=== PATIENT | male | born 1985 | race Caucasian/White ===

== ENCOUNTER 2016-11-22 07:41 | Day surgery (SDC) | payer SELFPAY ==
[~2016-11-22] VITALS: Ht 177.8 cm; Wt 94.0 kg
[~2016-11-22 07:41] MED LIST: HYDR-3307 PO; MELO-184 PO; METH500T97 PO; ONDA4TAB7 PO; TIZA6CAP PO; TRAM50TA2 PO
[2016-11-22 08:24] VITALS: BP 158/92
[2016-11-22] MEDS ORDERED: IBUP800T PO (08:28)
[2016-11-22] MEDS ORDERED: SODIUM CHLORIDE 0.9% 1,000 ML IV SCH (08:30)
== END 2016-11-22 09:20 | disposition home or self-care (01) ==
LOC: OUT 07:41 → EDSTATUS 14:00
PROVIDERS: ATTEND Neurological Surgery
DX: Z02.9 Encounter for administrative examinations, unspecified (principal)

== ENCOUNTER 2016-12-02 11:39 | Day surgery (SDC) | payer SELFPAY ==
[~2016-12-02] VITALS: Ht 177.8 cm; Wt 95.0 kg
[~2016-12-02 11:39] MED LIST changes: +IBUP-1223 PO; -MELO-184 PO; +MELO15TA24 PO
[2016-12-02] MEDS ORDERED: SODIUM CHLORIDE 0.9% 1,000 ML IV SCH (12:12)
[2016-12-02 12:33] VITALS: BP 133/85
[2016-12-02] MEDS ORDERED: OMNIPAQUE 300 MG/ML, 10ML VIAL ONE (14:51)
[2016-12-02] MEDS ORDERED: OXYcodone/APAP 5/325MG TABLET ONE (15:01)
[2016-12-02] MEDS ORDERED: OXYcodone/APAP 5/325MG TABLET PO ONE (15:30)
== END 2016-12-02 18:05 | disposition home or self-care (01) ==
LOC: OUT 11:39
PROVIDERS: ATTEND Neurological Surgery
DX: M54.5 Low back pain (principal); J45.909 Unspecified asthma, uncomplicated; G43.909 Migraine, unspecified, not intractable, without status migrainosus; F17.210 Nicotine dependence, cigarettes, uncomplicated
CPT/HCPCS: 62284; 72110; 72132; J7030; Q9967

== ENCOUNTER 2018-07-05 13:35 | Emergency (ER) | payer SELFPAY ==
[~2018-07-05] VITALS: Ht 177.8 cm; Wt 94.0 kg
[2018-07-05] MEDS ORDERED: SODIUM CHLORIDE FLUSH 10ML SYR IVF ONE (14:00)
[2018-07-05 14:33] LABS: BASOPHILS # (AUTO) 0.06 x10^3/uL (0-0.1); BASOPHILS % (AUTO) 1 % (0-1); EOSINOPHILS # (AUTO) 0.04 x10^3/uL (0-0.4); EOSINOPHILS % (AUTO) 0 % (1-7); LYMPHOCYTES # (AUTO) 2.47 x10^3/uL (1-3.4); LYMPHOCYTES % (AUTO) 22 % (22-44); MD NO; MEAN CORPUSCULAR HEMOGLOBIN 30.2 pg (27.5-34.5); MEAN CORPUSCULAR HGB CONC 33.4 g/dL (33.2-36.2); MEAN CORPUSCULAR VOLUME 90.5 fL (81-97); MEAN PLATELET VOLUME 8.1 fL (7.4-10.4); MONOCYTES # (AUTO) 0.61 x10^3/uL (0.2-0.8); MONOCYTES % (AUTO) 5 % (2-9); NEUTROPHILS # (AUTO) 8.27 x10^3/uL (1.8-6.8); NEUTROPHILS % (AUTO) 72 % (42-75); PLATELET COUNT 188 x10^3/uL (130-400); RED BLOOD COUNT 5.05 x10^6/uL (4.38-5.82); RED CELL DISTRIBUTION WIDTH 14.9 % (9.4-14.8)
[2018-07-05 14:38] LABS: ALANINE AMINOTRANSFERASE 28 U/L (12-78); ALBUMIN 4.3 g/dL (3.4-5.0); ANION GAP 8 mmol/L (5-15); CHLORIDE 108 mmol/L (98-107); CREATININE 0.88 mg/dL (0.7-1.3)
[2018-07-05 14:48] LABS: ALKALINE PHOSPHATASE 65 U/L (45-117); BILIRUBIN,TOTAL 0.6 mg/dL (0.2-1.0); FREE T4 (FREE THYROXINE) 1.15 ng/dL (0.76-1.46); TOTAL PROTEIN 7.9 g/dL (6.4-8.2)
--- NOTE | 2018-07-05 16:46 | NUR ---
pt walked back from lobby to room
--- NOTE | 2018-07-05 17:02 | NUR ---
dr casanova at bedside
[2018-07-05 17:53] LABS: CULTURE INDICATED? YES; MICROSCOPIC AUTO
[2018-07-05 18:46] VITALS: BP 120/65
--- NOTE | 2018-07-05 18:47 | NUR ---
US AT BEDSIDE
--- NOTE | 2018-07-05 19:11 | NUR ---
DR ARNDT AT BEDSIDE UPDATING PT ON POC
== END 2018-07-05 19:32 | disposition home or self-care (01) ==
LOC: ED 18:01
DX: N30.00 Acute cystitis without hematuria (principal); R00.2 Palpitations; M79.89 Other specified soft tissue disorders; F17.200 Nicotine dependence, unspecified, uncomplicated
CPT/HCPCS: 36415; 71045; 80053; 81001; 84439; 84443; 85025; 87077; 87086; 87186; 93005; 93970; 99284